=== PATIENT | female | born 1935 | race Caucasian/White ===

== ENCOUNTER → 2019-08-30 09:47 | Outpatient (CLI) | payer OTHER, SELFPAY ==
[2019-08-30 10:37] LABS: Add Manual Diff / Slide Review NO; Basophils Absolute Auto 100 /uL (0-100); Eosinophils Absolute Auto 200 /uL (0-450); Eosinophils Percent Auto 2.2 % (2-4); Hematocrit 44.9 % (36-46); Hemoglobin 15.1 g/dL (12.0-16.0); Lymphocytes Absolute Auto 1900 /uL (1100-4500); Lymphocytes Percent Auto 23.5 % (25-40); Mean Corpuscular HGB Conc 33.5 % (30-36); Mean Corpuscular Hemoglobin 30.8 PG (26-34); Mean Corpuscular Volume 91.7 fL (80-100); Monocytes Absolute Auto 800 /uL (0-900); Monocytes Percent Auto 10.4 % (3-14); Neutrophils Absolute Auto 5100 /uL (1500-7000); Neutrophils Percent Auto 62.9 % (50-75); Platelet Count 227 X10^3/uL (150-400); Red Cell Distribution Width 24.5 % (11.6-14.8); Reticulocyte Count, Percent 0.7 % (1.06-2.63); White Blood Cell Count 8.1 X10^3/uL (4.5-11.0)
[2019-08-30 10:53] LABS: Hemoglobin A1C% w Est Avg Glu 5.9 % (4.0-6.0)
[2019-08-30 10:59] LABS: Anisocytosis 2+
[2019-08-30 11:03] LABS: HEMOLYSIS < 15 (0-50); Iron 77 ug/dL (37-170)
[2019-08-30 11:06] LABS: Alanine Aminotransferase 17 IU/L (<35); Albumin 4.3 g/dL (3.5-5.0); Alkaline Phosphatase 167 U/L (38-126); Aspartate Aminotransferase 35 IU/L (14-36); Bilirubin Total 1.5 mg/dL (0.2-1.3); Blood Urea Nitrogen 15 mg/dL (7-17); Calcium 10.1 mg/dL (8.4-10.2); Carbon Dioxide 30 mmol/L (22-32); Chloride 98 mmol/L (98-107); Estimated Glomerular Filt Rate > 60.0 mL/min (>60); Globulin 4.3 g/dL (1.7-4.1); Glucose 121 mg/dL (80-110); HEMOLYSIS < 15 (0-50); Sodium 143 mmol/L (137-145); Total Protein 8.6 g/dL (6.3-8.2)
[2019-08-30 11:14] LABS: Percent Iron Saturation 29 % (15-50); Potassium 5.9 mmol/L (3.4-5.1); Total Iron Binding Capacity 268 ug/dL (265-497); Transferrin 215 mg/dL (206-381)
== END ==
PROVIDERS: PCP Nurse Practitioner; Referring Provider Nurse Practitioner; Visit Provider Nurse Practitioner
DX: D50.9 Iron deficiency anemia, unspecified (principal); E11.9 Type 2 diabetes mellitus without complications; K74.60 Unspecified cirrhosis of liver; Z79.899 Other long term (current) drug therapy
CPT/HCPCS: 36415; 80053; 83036; 83540; 83550; 85025; 85045

== ENCOUNTER → 2019-09-11 15:45 | Outpatient (CLI) | payer OTHER, SELFPAY ==
--- NOTE | 2019-09-11 15:47 | DI.RAD.S_ITS ---
PROCEDURE: XR RIBS BI MIN 4V W CXR1V INDICATIONS: s/p fall 08/21 with pain over kidney area TECHNIQUE: 3 views of the bilateral ribs were acquired, along with a single view chest. COMPARISON: None. FINDINGS: Surgical changes and devices: None. Bones and chest wall: No fractures or dislocations. No suspicious bony lesions. Overlying soft tissues appear unremarkable. Lungs and pleura: No pleural effusions or pneumothorax. Lungs appear clear. Mediastinum: Mediastinal contours appear normal. Heart size is normal. IMPRESSION: No definite trauma found. Plain films surface markers were placed over the area of maximal tenderness, far lower margin of the ribs bilaterally, symmetric. In this area the superimposition of the abdominal soft tissues renders accurate assessment quite limited. Nuclear medicine bone scan could be utilized for more accurate assessment of this area if clinically desired. Dictated by: Elmer Frost M.D. on 09/11/2019 at 16:24 Approved by: Elmer Frost M.D. on 09/11/2019 at 16:26
[2019-09-11 17:21] LABS: RBC Urine None Seen (0-5/HPF)
[2019-09-11 17:42] LABS: Bilirubin Urine UA NEGATIVE (NEGATIVE); Color Urine UA YELLOW; Glucose Urine UA NEGATIVE (Negative); Ketones Urine UA 1+ (NEGATIVE); Leukocyte Esterase Urine UA 2+ (NEGATIVE); Nitrite Urine UA NEGATIVE (Negative); Occult Blood Urine UA NEGATIVE (Negative); Protein Urine UA 1+ (Negative); Specific Gravity Urine UA 1.015 (1.000-1.035); Urobilinogen Urine UA 0.2 E.U./dL (0.2)
[2019-09-11 18:03] LABS: Appearance Urine UA Slightly Cloudy
[2019-09-11 18:04] LABS: Renal Epithelial Cells Urine 1-5/HPF (0-1/HPF); Squamous Epithelial Cell Urine 1-5 /HPF (0-5/HPF); WBC Urine 5-10/HPF (0-5/HPF)
[2019-09-11 18:05] LABS: Amorphous Sediment Urine 1+; Bacteria Urine Few (2-10); Culture Indicated Urine Specimen Cultured; Hyaline Casts Urine 1-5/LPF; Mucus Urine 1+ (Negative)
[2019-09-11 18:22] LABS: Free T3, Triiodothyronine Free 2.72 pg/mL (2.77-5.27)
[2019-09-11 18:36] LABS: Thyroid Stimulating Hormone 0.09 uIU/mL (0.47-4.68)
== END ==
PROVIDERS: PCP Nurse Practitioner; Referring Provider Nurse Practitioner; Visit Provider Nurse Practitioner
DX: N23 Unspecified renal colic (principal); M54.9 Dorsalgia, unspecified; R53.83 Other fatigue; Z87.440 Personal history of urinary (tract) infections
CPT/HCPCS: 36415; 71111; 81001; 84439; 84443; 84481; 87086